=== PATIENT | female | born 1970 | race Asian ===

== ENCOUNTER 2024-09-09 13:01 | Day surgery (SDC) | payer OTHER, SELFPAY ==
[2024-09-03 15:18] VITALS: BMI 26.4
--- NOTE | 2024-09-09 | PATH_ITS ---
[facility] Accession Number: [id number] No. of containers..02 Tissue . 01 Material submitted: . PART A: cervix - CERVICAL POLYP PART B: endometrium - ENDOMETRIAL CURETTINGS . 01 Diagnosis: A. CERVICAL POLYP: Benign polyp (20 mm in greatest dimension); favor origin from endocervix / lower uterine segment. Negative for signficant atypia. . B. ENDOMETRIAL CURETTINGS: Small fragments of endometrial tissue, predominantly stromal; negative for significant atypia. Some endometrial fragments demonstrate prominent vessels, suggestive of polyp, if clinical and imaging studies are concordant. Please see comment. MRV 09/13/2024 1314 Local . 01 Comment: Part B: Due to the scant nature of endometrial tissue in this biopsy, it may not be entirely service center representative of this patient's endometrium; additional sampling could be considered, if clinically appropriate. . 01 Electronically signed: . Devora Morejon MD, Pathologist NPI- [id number] . 01 Gross description: . A. Received in formalin with two patient identifiers and cervical polyp, and consists of a 2.0 x 1.0 x 0.6 cm white-kirk, smooth glistening polyp, which is inked at the base and serially sectioned to show a white fibrotic homogeneous cut surface Additionally received in the same container is a 2.0 x 1.0 x 0.6 cm aggregate of clear to blood tinged mucus admixed with soft tissue fragments, which is filtered, and both specimens are entirely submitted as follows: A1: Polyp. A2: Mucoid tissue. B. Received in formalin with two patient identifiers and endometrial curettings, and consists of a 1.0 x 0.4 x 0.1 cm aggregate of kirk-brown soft tissue admixed with clotted blood which is filtered and entirely submitted in cassette B1. ([id number]) /MRV 09/11/20242006 Local . 01 Pathologist provided ICD-10: N84.1, N95.0 . 01 CPT . 875259, 189347 Specimen Comment: A courtesy copy of this report has been sent to [phone] Performed at: [address] [address], [place], [place] [id number] MD Wojciech Kate MD Phone: [phone]
[2024-09-09 13:58] VITALS: BP 130/84; PULSE 66; RESP 16; TEMP 36.8; O2SAT 100; BMI 26.4
[2024-09-09] MEDS: LACTATED RINGERS 1,000 ML 21 ML IV ×2 (14:18)
--- NOTE | 2024-09-09 15:39 | P.HPOB_ITS ---
History of Present Illness History of Present Illness Reason for admission: vaginal bleeding and other (Mass coming from cervix) Narrative: Claudine Coe is a 54 year old female admitted for hysteroscopy D&C with removal of 2 cm mass prolapsing from the cervix COUNTS INCLUDE 234 BEDS AT THE [facility] Medical History (Updated 08/28/24 @ 18:51 by Reyna Buchanan) Foot pain (~2019) Menopause (~2021) Psoriasis (~2009) Allergies (~1999) Migraines (~1999) Shoulder pain (~2020) Chicken pox (~1973) Thalassemia (~2003) Herpes (~1999) Fibroid, uterine (~1996) Surgical History (Updated 09/03/24 @ 15:22 by Marlena Gould RN) Hx of right breast biopsy (2011) History of hysterectomy (~09/09/23) History of colonoscopy (~2022) Anesthesia History of hernia repair Family History (Updated 07/29/24 @ 19:46 by Reyna Buchanan) Father Hypertension Hyperlipidemia Mother Hypertension Hyperlipidemia Brother Hyperlipidemia Grandfather History of heart disease Grandmother Stroke Social History household members: spouse Smoking Status: Never smoker Meds Home Medications and Allergies Home Medications Medication Instructions Recorded Confirmed Type No Known Home Medications 06/21/24 06/21/24 History Allergies Allergy/AdvReac Type Severity Reaction Status Date / Time Penicillins Allergy Mild Rash Verified 09/09/24 13:57 cefaclor [From Ceclor] Allergy Hives, rash Verified 09/09/24 13:57 Review of Systems Review of Systems Narrative: Patient is a 53-year-old G0 who was postmenopausal 2 years ago. The patient had some dark spotting 1 year ago. She had 3 days of period like bright red bleeding recently. Patient did states she had an increase in a clear discharge the week before the bleeding. No pain. No problems with urination. No problems with constipation. The patient is sexually active and denies any problems with intercourse. Exam Vital Signs (past 8 hours): - 09/09/24 13:58 Temperature 98.3 F Pulse Rate 66 Respiratory Rate 16 Blood Pressure 130/84 Pulse Oximetry 100 Oxygen Delivery Method Room Air Oxygen Delivery Method Room Air Narrative Exam Narrative: Patient says she has a history of fibroids that were followed in the past. On physical exam the patient's HEENT exam within normal limits. Lungs are clear to auscultation percussion. Heart is regular rate and rhythm no S3-S4 murmurs. No thyromegaly. Abdomen is soft, nontender with no palpable organomegaly. On vaginal ultrasound the patient's uterus measures 7.84 x 3.62 x 4.42 cm with an endometrial thickness 4.33 mm but somewhat obscured by a anterior partially calcified fibroid appears to be subserosal. Vaginal exam normal external genitalia, vagina is atrophic without lesions, cervix has a 1-1/2 cm fleshy mass coming out of the cervix likely endocervical polyp. It is a little bit friable. Assessment & Plan Assessment and plan (1) Postmenopausal bleeding: Status: Acute (2) Endocervical polyp: Status: Acute Assessment & Plan narrative: Hysteroscopy D&C with removal of mass coming from the cervix. Consent form reviewed with the patient. Risk of reaction to anesthesia or medication. Risk of bleeding, infection, damage shifts structures such as bowel, bladder, ureter if the uterus is perforated. This may require opening the abdomen to repair or additional surgery. Consent form signed and questions answered. Time-Based Coding :: [TOTAL MINUTES] spent with patient and on the chart (including review of chart, obtaining history, exam, reviewing outside data, placing orders, documenting exam and treatment plan, and counseling patient) on [DATE].
--- NOTE | 2024-09-09 15:43 | PM.PREOP ---
Pre-operative Note Interval Note History & Physical reviewed/Exam performed by Physician: Yes Changes to H&P: No
[2024-09-09] MEDS: ACETAMINOPHEN 325 MG TABLET 975 MG PO (16:09)
[2024-09-09] MEDS: SCOPOLAMINE 1 PATCH TOP (16:11)
--- NOTE | 2024-09-09 16:43 | SUR.OPER ---
Lithotomy on padded OR bed, head on pillow, arms secured on padded arm boards at <90 degrees abduction. Legs secured in padded yellow fins stirrups.
--- NOTE | 2024-09-09 16:54 | PM.OP.1 ---
Operative Date/Time/Diagnoses Date of procedure: 09/09/24 Time of procedure: 16:54 Pre-op diagnosis: Postmenopausal bleeding and 2 cm mass coming from the cervix Post-op diagnosis: same Procedure & Clinicians Procedure: Removal of endocervical mass, hysteroscopy D&C Same procedure as scheduled: Yes Indications: Postmenopausal bleeding and 2 cm mass coming from the cervix. Borderline thickened endometrium on ultrasound of 7 mm Surgeon: Leana Aguilar Click Yes if Unassisted: Yes Anesthesia Type: General Operative Notes Findings: 2 cm mass coming from the cervix likely polyp possible fibroid. Uterus lining distorted by submucous fibroid. No uterine masses visualized. Closure Type: not applicable Specimen(s): other (Endocervical mass, endometrial curettage.) Estimated Blood Loss (mL): 5 Procedure in detail: The patient was brought to the operating room where she underwent general anesthesia. She was placed in low stirrups She was prepped and draped in usual sterile fashion with pulsatile stockings in place and functional, warming in place. A single-tooth tenaculum was placed on the anterior lip of the cervix. The endocervical mass was removed using the Bovie. The uterus dilated to #8 Hegar dilator. The hysteroscope was placed into the uterus with a saline solution running and under constant suction. A endometrial curettage was performed. The endocervical mass and the endometrial curettage was sent to pathology. The patient went to recovery room in good condition counts of instruments and sponges were correct. Estimated blood loss less than 5 mL. Complications: none Post-operative Condition: stable Disposition: same day surgery Plan for aftercare: Home when awake and stable
[2024-09-09 16:56] VITALS: BP 131/79; PULSE 63; RESP 14; TEMP 36.6; O2SAT 99
[2024-09-09 17:01] VITALS: BP 121/73; PULSE 63; RESP 14; O2SAT 99
[2024-09-09 17:06] VITALS: BP 126/72; PULSE 59; RESP 14; O2SAT 98
[2024-09-09 17:07] VITALS: BP 126/73; PULSE 62; RESP 14; TEMP 36.6; O2SAT 100
== END 2024-09-09 17:40 | disposition home or self-care (01) ==
PROVIDERS: PCP Student in an Organized Health Care Education/Training Program; Referring Provider Specialist; Visit Provider Specialist
PROC: 0UDB8ZZ Extraction of Endometrium, Via Natural or Artificial Opening Endoscopic (ICD-10-PCS; CPT 58558; principal; 2024-09-09 14:45)
DX: N95.0 Postmenopausal bleeding (principal); D25.0 Submucous leiomyoma of uterus; N84.1 Polyp of cervix uteri; N88.9 Noninflammatory disorder of cervix uteri, unspecified; Z90.710 Acquired absence of both cervix and uterus
CPT/HCPCS: 58558; J1100; J2405; J2704; J3010

== ENCOUNTER → 2024-09-16 08:38 | Outpatient (CLI) | payer OTHER, SELFPAY ==
[2024-09-16 10:01] LABS: Hemoglobin A1C% w Est Avg Glu 5.9 % (4.0-6.0)
[2024-09-16 10:07] LABS: Alanine Aminotransferase 15 IU/L (<35); Albumin 4.5 g/dL (3.5-5.0); Albumin Globulin Ratio 1.6 (1.0-2.8); Alkaline Phosphatase 89 U/L (38-126); Aspartate Aminotransferase 25 IU/L (14-36); Bilirubin Total 0.5 mg/dL (0.2-1.3); Blood Urea Nitrogen 19 mg/dL (7-17); Calcium 9.6 mg/dL (8.4-10.2); Carbon Dioxide 26 mmol/L (22-32); Chloride 104 mmol/L (98-107); Cholesterol 291 mg/dL (140-199); Estimated Glomerular Filt Rate > 60 mL/min (>60); Globulin 2.8 g/dL (1.7-4.1); Glucose 105 mg/dL (70-100); HDL Cholesterol 70 mg/dL (40-60); HEMOLYSIS < 15 (0-50); LDL Cholesterol Calculated 188 mg/dL (<100); Potassium 4.1 mmol/L (3.4-5.1); Sodium 137 mmol/L (137-145); Total Protein 7.3 g/dL (6.3-8.2); Triglycerides 164 mg/dL (35-150)
== END ==
PROVIDERS: PCP Student in an Organized Health Care Education/Training Program; Referring Provider Student in an Organized Health Care Education/Training Program; Visit Provider Student in an Organized Health Care Education/Training Program
DX: R63.5 Abnormal weight gain (principal); Z87.898 Personal history of other specified conditions
CPT/HCPCS: 36415; 80053; 80061; 83036; 84443

== ENCOUNTER → 2024-10-18 14:34 | Outpatient (CLI) | payer OTHER, SELFPAY ==
--- NOTE | 2024-10-18 14:36 | DI.MG.S_ITS ---
BILATERAL DIGITAL SCREENING MAMMOGRAM 3D/2D WITH CAD: 10/18/2024 CLINICAL: Routine screening. Comparison is made to exams dated: 01/04/2023 mammogram, 01/22/2021 mammogram, and 02/17/2012 mammogram - outside location. The breasts are extremely dense, which lowers the sensitivity of mammography (category d />75% glandular tissue). Current study was also evaluated with a Computer Aided Detection (CAD) system. No significant masses, calcifications, or other findings are seen in either breast. There has been no significant interval change. IMPRESSION: NEGATIVE There is no mammographic evidence of malignancy. A 1 year screening mammogram is recommended. Based on Tyrer-Cuzick model (a risk assessment model), the patient's lifetime risk is 20.7% and her 10 year risk is 6.2%. If a patient has an elevated risk, a more comprehensive evaluation should be considered and/or a referral to a genetic counselor. The [place] [employer], [place] [employer], and NCCN Guidelines advise the consideration of Breast MRI as an adjunct to screening mammography in patients whose Lifetime risk to develop breast cancer is 20% or higher. This exam was interpreted at Station ID: [id number]. NOTE: For mammograms, a report in lay terms will be sent to the patient. Approximately 15% of breast malignancies will not be visualized mammographically. In the management of a palpable breast mass, a negative mammogram must not discourage biopsy of a clinically suspicious lesion. Electronically Signed By: Shawn jara/greg:10/18/2024 15:58:09 letter sent: Normal Exam ACR BI-RADS Category 1: Negative
--- NOTE | 2024-10-18 14:36 | DI.US.S_ITS ---
PROCEDURE: US THYROID INDICATIONS: RIGHT PALPABLE LUMP ?THYROID NODULE VERSUS LYMPHNODE TECHNIQUE: Real-time scanning was performed of the thyroid gland, with image documentation. COMPARISON: None. FINDINGS: Thyroid: Right lobe measures 5.8 x 1.3 x 2.4 cm. Left lobe measures 3.9 x 0.8 x 0.8 cm. Isthmus is 0.2 to cm thick. Echotexture is mildly heterogeneous. Nodule number: 1 Location: Upper pole right thyroid Size: 1.3 x 0.7 x 1.0 cm. Composition: Predominantly solid Echogenicity: Hypoechoic Shape: Wider than tall Margins: Smooth Echogenic foci: Comet tail artifacts Total points: 3 ACR TI-RADS category: Mildly suspicious. Nodule number: 2 Location: Posterior and inferior aspect of right hepatic lobe. Size: 0.9 x 1.1 x 0.8 cm. Composition: Solid Echogenicity: Hypoechoic Shape: Wider than tall Margins: Smooth Echogenic foci: Peripheral calcifications. Total points: 6 ACR TI-RADS category: Moderately suspicious. Nodule number: 3 Location: Anterior aspect of lower pole right thyroid lobe. Size: 2.9 x 1.8 x 2.0 cm Composition: Solid Echogenicity: Isoechoic Shape: Wider than tall Margins: Smooth Echogenic foci: Peripheral calcifications. Total points: 5 ACR TI-RADS category: Moderately suspicious No neck soft tissue lymphadenopathy is seen. IMPRESSION: 1. 3 [id number] suspicious right-sided thyroid nodules as described above. Suggest fine-needle aspiration of the moderately suspicious nodule in anterior aspect of lower pole right thyroid lobe (nodule 3.). ACR TI-RADS definitions and recommendations: TI-RADS 1 (benign): 0 points. FNA not needed. TI-RADS 2 (not suspicious): 2 points. FNA not needed. TI-RADS 3: 3 points. * FNA if 2.5 cm or larger, follow up if 1.5 cm or larger (at 1, 3, and 5 years). TI-RADS 4: 4-6 points. * FNA if 1.5 cm or larger, follow up if 1 cm or larger (at 1, 2, 3, and 5 years). TI-RADS 5: 7 points or more. * FNA if 1 cm or larger, follow up if 0.5 cm or larger (every year for 5 years). Dictated by: Brandt Alves M.D. on 10/18/2024 at 16:59 Approved by: Brandt Alves M.D. on 10/18/2024 at 17:03
== END ==
PROVIDERS: PCP Student in an Organized Health Care Education/Training Program; Referring Provider Student in an Organized Health Care Education/Training Program; Visit Provider Student in an Organized Health Care Education/Training Program
DX: Z12.31 Encounter for screening mammogram for malignant neoplasm of breast (principal); R92.343 Mammographic extreme density, bilateral breasts; R22.1 Localized swelling, mass and lump, neck; E04.2 Nontoxic multinodular goiter
CPT/HCPCS: 76536; 77063; 77067